=== PATIENT | female | born 1995 | race Two or more races ===

== ENCOUNTER 2022-06-03 01:50 | Emergency (ER) | payer OTHER ==
[~2022-06-03] VITALS: Ht 162.6 cm; Wt 63.5 kg
[2022-06-03] MEDS ORDERED: AMOX-CLAV 875-1 EAC1 PO (05:41)
[2022-06-03] MEDS ORDERED: KETO10TA2 PO (05:41)
[2022-06-03] MEDS ORDERED: BACTRIM DS TAB1 EACH PO (05:41)
== END 2022-06-03 05:50 ==
LOC: ER 01:50
DX: N75.8 Other diseases of Bartholin's gland (principal)